=== PATIENT | male | born 1990 | race Caucasian/White ===

== ENCOUNTER 2019-02-28 11:50 | Emergency (ER) | payer OTHER ==
[~2019-02-28] VITALS: Ht 177.8 cm; Wt 99.8 kg
[~2019-02-28 11:50] MED LIST: AMOXICILLIN875 MG PO; LIDOCAINE VISC100 M1 MM
[2019-02-28] MEDS ORDERED: OMEPRAZOLE 20 M20 M1 PO (12:13)
[2019-02-28 12:48] LABS: ABSOLUTE EOSINOPHILS 0.1 thou/uL (0.0-0.7); ABSOLUTE LYMPHOCYTES 0.7 thou/uL (0.8-5.3); ABSOLUTE MONOCYTES 0.4 thou/uL (0.0-1.2); ABSOLUTE NEUTROPHILS 4.3 thou/uL (1.6-8.1); BASOPHILS 0.3 %; EOSINOPHILS 1.8 %; HEMATOCRIT 42.8 % (42.0-52.0); HEMOGLOBIN 15.1 gm/dL (14.0-18.0); LYMPHOCYTES 13.2 %; MCH 32.1 pg (26.0-34.0); MCHC 35.3 g/dL (28.0-37.0); MCV 90.9 fL (80.0-100.0); MONOCYTES 7.5 %; MPV 8.7 fl. (7.2-11.1); NUCLEATED RBCS 0 /100WBC; PLATELET COUNT* 139 thou/uL (150-400); POLYS 77.2 %; RDW-CV 12.3 % (10.5-14.5); WBC 5.6 thou/uL (4.0-11.0)
[2019-02-28 12:55] LABS: CALCIUM 9.1 mg/dL (8.5-10.1); CREATININE 1.1 mg/dL (0.6-1.3)
[2019-02-28 13:00] LABS: ALBUMIN 4.4 g/dL (3.4-5.0); TOTAL BILIRUBIN 0.4 mg/dL (<0.1-1.0); TOTAL PROTEIN 8.8 g/dL (6.4-8.2)
[2019-02-28 13:07] LABS: INFLUENZA A ANTIGEN Negative (Negative); INFLUENZA B ANTIGEN Negative (Negative)
[2019-02-28] MEDS ORDERED: ONDANSETRON HCL4 M2 PO (14:49)
[2019-02-28] MEDS ORDERED: SERTRALINE HCL50 MG PO (14:59)
[2019-02-28] MEDS ORDERED: NORVASC 2.5 MG2.5 M1 PO (15:00)
[2019-02-28] MEDS ORDERED: PROTONIX40 M4 PO (15:01)
[2019-02-28] MEDS ORDERED: DOXYCYCLINE 10100 MG PO (15:03)
[2019-02-28] MEDS ORDERED: NABUMETONE 750750 M1 PO (15:03)
[2019-02-28 15:09] VITALS: BP 145/78
== END 2019-02-28 15:10 | disposition home or self-care (01) ==
LOC: M.ERS 11:50
PROVIDERS: Nurse Practitioner Family
DX: L03.113 Cellulitis of right upper limb (principal); R94.5 Abnormal results of liver function studies; I10 Essential (primary) hypertension; K20.9 Esophagitis, unspecified; F10.20 Alcohol dependence, uncomplicated; F17.210 Nicotine dependence, cigarettes, uncomplicated; Y90.9 Presence of alcohol in blood, level not specified